=== PATIENT | male | born 1995 | race African-American/Black ===

== ENCOUNTER 2025-04-07 19:51 | Emergency (ER) | payer OTHER ==
[~2025-04-07] VITALS: Ht 195.6 cm; Wt 100.0 kg
[2025-04-07 19:54] VITALS: BP 145/87; PULSE 59; RESP 18; TEMP 36.4; O2SAT 98
== END 2025-04-07 20:30 | disposition left against medical advice (07) ==
LOC: ER 19:51
DX: T78.1XXA Other adverse food reactions, not elsewhere classified, initial encounter (principal); Z53.21 Procedure and treatment not carried out due to patient leaving prior to being seen by health care provider; X58.XXXA Exposure to other specified factors, initial encounter